=== PATIENT | male | born 1980 | race African-American/Black ===

== ENCOUNTER 2019-09-28 11:32 | Emergency (ER) | payer OTHER ==
[~2019-09-28] VITALS: Ht 167.6 cm; Wt 99.8 kg
[~2019-09-28 11:32] MED LIST: POLYTRIM EYE DR10 M1 OP
[2019-09-28 11:45] VITALS: BP 144/83
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
[2019-09-28] MEDS ORDERED: Bacitracin Oint UD TOPIC ONE (12:00)
[2019-09-28] MEDS ORDERED: AUGMENTIN 875-1 EAC1 ORAL (12:29)
[2019-09-28 12:35] VITALS: BP 135/82
--- NOTE | 2019-09-28 12:35 | NUR ---
ER DISCHARGE NOTE: Patient is cleared to be discharged per ERMD, pt is aox4, on room air, with stable vital signs. pt was given dc and prescription instructions, pt was able to verbalize understanding, pt id band removed. pt is able to ambulate with steady gait. pt took all belongings.
--- NOTE | 2019-09-28 14:04 | Diagnostic Imaging Report ---
Indication: Trauma, pain Technique: 2 views of the right second digit Comparison: none Findings: There is a minimally distracted corner fracture the base of the second proximal phalanx. No other acute fractures. No dislocations. Joint spaces are preserved. Impression: Positive for distal phalangeal fracture Findings discussed by phone with Dr. Stephens at the time of interpretation
== END 2019-09-28 12:35 | disposition home or self-care (01) ==
LOC: EMR 12:02
DX: S62.630A Displaced fracture of distal phalanx of right index finger, initial encounter for closed fracture (principal); W51.XXXA Accidental striking against or bumped into by another person, initial encounter; Y92.9 Unspecified place or not applicable
CPT/HCPCS: 73140; Z7502; 99283